=== PATIENT | female | born 1955 | race Caucasian/White ===

== ENCOUNTER 2018-11-02 06:33 | Observation (INO) | payer OTHER ==
[2018-11-01 10:05] LABS: BASOPHILS % 0.3 % (0.0-1.0); EOSINOPHILS # (AUTO) 0.2 (0.0-0.4); EOSINOPHILS % 2.6 % (0.0-6.0); HEMATOCRIT 39.1 % (34.2-44.1); LYMPHOCYTES % 52.8 % (18.0-39.1); MEAN CORPUSCULAR HEMOGLOBIN 29.5 pg (28-32); MEAN CORPUSCULAR HGB CONC 33.2 g/dL (31-35); MEAN CORPUSCULAR VOLUME 88.7 fL (81-99); MONOCYTES # (AUTO) 0.5 (0.2-0.8); MONOCYTES % 9.4 % (4.4-11.3); NEUTROPHILS % 34.2 % (38.7-80.0); PLATELET COUNT 374 x10e3/uL (140-360); RED BLOOD COUNT 4.41 x10e6/uL (3.6-5.1)
--- NOTE | 2018-11-01 10:16 | Diagnostic Imaging Report ---
EXAMINATION: PA and lateral views of the chest. COMPARISON: None CLINICAL HISTORY: Preoperative study for spinal procedure. DISCUSSION: Lines/tubes: None. Lungs: The lungs are well inflated and clear. There is no evidence of pneumonia or pulmonary edema. Pleura: There is no pleural effusion or pneumothorax. Heart and mediastinum: The cardiomediastinal silhouette is normal. Bones and soft tissues: No acute bony abnormalities. Degenerative changes in the thoracic spine IMPRESSION: No acute cardiopulmonary abnormalities. Signed by: Dr. Leobardo Adame M.D. on 11/01/2018 10:13 AM
[2018-11-01 10:31] LABS: INR 0.86; PROTHROMBIN TIME 12.2 seconds (11.9-14.5)
[2018-11-01 10:32] LABS: PARTIAL THROMBOPLASTIN TIME 33.3 seconds (23.8-35.5)
[2018-11-01 10:34] LABS: ANION GAP 12.9 mmol/L (8-16); BLOOD UREA NITROGEN 15 mg/dL (7-26); BUN/CREATININE RATIO 22 (6-25); CALCIUM 10.1 mg/dL (8.4-10.2); CARBON DIOXIDE 27 mmol/L (22-29); CHLORIDE 100 mmol/L (98-107); CREATININE, SERUM 0.69 mg/dL (0.57-1.11); EST GLOMERULAR FILTRATION RATE > 60 ML/MIN (60-); GLUCOSE 92 mg/dL (74-118); POTASSIUM 3.9 mmol/L (3.5-5.1); SODIUM 136 mmol/L (136-145)
[~2018-11-02] VITALS: Ht 172.7 cm; Wt 77.6 kg
[~2018-11-02 06:33] MED LIST: ASPIR 8181 MG PO; BUPROPION HCL75 MG PO; BYSTOLIC10 MG PO; LOSARTAN POTASS25 MG PO; MONTELUKAST SOD10 MG PO; VALIUM5 MG PO
--- OUTSIDE RECORDS SUMMARY | 2018-11-02 06:36 | XMS REPORT ---
Author [facility] Address Unknown Phone Unavailable Care Team Providers Care Coding Clerk Name Role Phone SIDNEY CAMPUZANO Unavailable Unavailable Problems This patient has no known problems. Allergies, Adverse Reactions, Alerts This patient has no known allergies or adverse reactions. Medications This patient has no known medications. Results Test Description Test Time Test Comments Text Results Atomic Results Result Comments CHEST 2 VIEWS 2018-11-01 10:12:00 [place] [id number] Patient Name: LOR BEASLEY MR #: [id number] : 1955 Age/Sex: 63/F Req #: [id number] [facility] Physician: Ordered by: SIDNEY CAMPUZANO MD Report #: [id number] Location: OR Room/Bed: Procedure: [id number] DX/CHEST 2 VIEWS Exam Date: 11/01/18 Exam Time: 0955 REPORT STATUS: Signed EXAMINATION: PA and lateral views of the chest. HAILEY RISON: None CLINICAL HISTORY: Preoperative study for spinal procedure. DISCUSSION: Lines/tubes: None. Lungs: The lungs are well inflated and clear. There is no evidence of pneumonia or pulmonary edema. Pleura: There is no pleural effusion or pneumothorax. Heart and mediastinum: The cardiomediastinal silhouette is normal. Bones and soft tissues: No acute bony abnormalities. Degenerative changes in the thoracic spine IMPRESSION: No acute cardiopulmonary abnormalities. Signed by: Dr. Karen Veronica M.D. on 11/01/2018 10:13 AM Dictated By: KAREN VERONICA MD [id number] Transcribed By: BROOKLYNN on 11/01/18 1013 COPY TO: SIDNEY CAMPUZANO MD
--- OUTSIDE RECORDS SUMMARY | 2018-11-02 06:36 | XMS REPORT | Clinical Summary ---
Author Author [facility] Address Unknown Phone Unavailable Care Team Providers Care Director Of Medical Education Name Role Phone Janette Richter MD PCP Allergies Comments Active Allergy Reactions Severity Noted Date Prochlorperazine 01/31/2017 Medications End Date Status Medication Sig Dispensed Refills Start Date Active traMADol (ULTRAM) 50 mg 0 tablet 8 Active BYSTOLIC 10 mg tablet 0 8 Active montelukast (SINGULAIR) 0 10 mg tablet 8 Active losartan (COZAAR) 50 MG 0 tablet 8 Active atorvastatin (LIPITOR) 10 0 MG tablet 8 Active aspirin 81 mg chewable Chew 81 mg. 0 tablet Active ZIPSOR 25 mg capsule 0 8 Active buPROPion (WELLBUTRIN) 75 Take 1 tablet 90 tablet 0 MG tabletIndications: (75 mg total) 9 Anxiety by mouth daily. 05/16/2018 Discontinued buPROPion (WELLBUTRIN) 75 0 MG tablet 8 06/12/2018 Discontinued ALPRAZolam (XANAX) 0.5 MG 0 tablet 8 07/12/2018 ALPRAZolam (XANAX) 0.5 MG Take 1 tablet 60 tablet 0 tablet (0.5 mg 9 total) by mouth 2 (two) times a day for 30 days. Active Problems Problem Noted Date Essential hypertension 05/16/2018 Anxiety 05/16/2018 Mixed hyperlipidemia 05/16/2018 Primary osteoarthritis of right knee 05/16/2018 URBANO (obstructive sleep apnea) 05/16/2018 Encounters Care Team Description Date Type Specialty Janette Richter MD 06/13/2018 Orders Only Internal Medicine Janette Richter MD 06/12/2018 Orders Only Internal Medicine Janette Richter MD 06/12/2018 Telephone Family Medicine Amrita Razo 06/09/2018 Telephone Family Medicine Janette Richter MD Essential hypertension (Primary Dx); Anxiety; Mixed hyperlipidemia; Primary osteoarthritis of right knee; URBAON (obstructive sleep apnea) 05/16/2018 Office Visit Internal Medicine after 11/01/2017 Social History Date Tobacco Use Types Packs/Day Years Used Never Smoker Smokeless Tobacco: Never Used Alcohol Use Drinks/Week oz/Week Comments No Alcohol Habits Answer Date Recorded How often do you have a drink containing alcohol? Never 05/16/2018 How many drinks containing alcohol do you have on Not asked a typical day when you are drinking? How often do you have six or more drinks on one Not asked occasion? Sex Assigned at Date Recorded Not on file Industry Job Start Date Occupation Not on file Not on file Not on file Travel End Travel History Travel Start No recent travel history available. Last Filed Vital Signs Time Taken Vital Sign Reading 05/16/2018 10:50 AM [employer] BU[employer] Blood Pressure 161/84 05/16/2018 10:50 AM [employer] BU[employer] Pulse 67 - Temperature - - Respiratory Rate - - Oxygen Saturation - - Inhaled Oxygen - Concentration 05/16/2018 10:50 AM [employer] BU[employer] Weight 83 kg (183 lb) 05/16/2018 10:50 AM [employer]YSTER BU[employer]ER Height 174 cm (5' 8.5") 05/16/2018 10:50 AM OYSTER BUYER Body Mass Index 27.42 Plan of Treatment Health Maintenance Due Date Last Done Comments COLONOSCOPY SCREENING 2006 SHINGLES VACCINES (#1) 2006 BREAST CANCER SCREENING 09/06/2018 09/06/2016 INFLUENZA VACCINE 05/16/2019 Postponed from 12/07/2018 (Patient Refused) Results Not on fileafter 11/01/2017 Insurance Type Payer Benefit Subscriber ID Effective Phone Address Plan / Dates Group HMO/PPO [facility] xxxxxxxxx 2018-P THCARE resent CHOICE/CHO ICE + Advance Directives Patient has advance care planning documents on file. For more information, pura carlson contact: Wilber Romero [address] [facility] [place] [address]
[2018-11-02] MEDS ORDERED: BUPIVACAINE 0.5%/EPI 30 ML SDV INJ ONE (06:41)
[2018-11-02] MEDS ORDERED: THROMBIN FOR SOLN 5,000 UNIT VIAL ONE (06:41)
[2018-11-02] MEDS ORDERED: BACITRACIN 50,000 UNIT VIAL ONE (06:41)
[2018-11-02] MEDS ORDERED: ACETAMINOPHEN 1000 MG/100 ML 100 ML IV ONE (07:28)
[2018-11-02] MEDS ORDERED: LIDOCAINE HCL (LTA) 4 ML SOLN ONE (07:29)
[2018-11-02] MEDS ORDERED: CEFAZOLIN SOD 1 GM/NS 50ML 100 ML IV ONE (09:32)
[2018-11-02] MEDS ORDERED: GELATIN SPONGE 12-7MM ONE (10:40)
[2018-11-02] MEDS ORDERED: MAGNESIUM/ALUMINUM/SIMETHICONE 30 ML UDC PO PRN (12:15)
[2018-11-02] MEDS ORDERED: CARISOPRODOL 350 MG TAB PO PRN (12:15)
[2018-11-02] MEDS ORDERED: ACETAMINOPHEN 325 MG TAB PO PRN (12:15)
[2018-11-02] MEDS ORDERED: CEPACOL SORE THROAT LOZENGES PO PRN (12:15)
[2018-11-02] MEDS ORDERED: ZOLPIDEM TARTRATE 5 MG TAB PO PRN (12:15)
[2018-11-02] MEDS ORDERED: OXYCODONE/ACETAMINOPHEN 5-325 1 EACH TABLET PO PRN (12:15)
[2018-11-02] MEDS ORDERED: PROMETHAZINE HCL (IM) 25 MG/ML VIAL IM PRN (12:15)
[2018-11-02] MEDS ORDERED: MORPHINE SULFATE 5 MG/ML VIAL IM PRN (12:15)
[2018-11-02] MEDS ORDERED: DIAZEPAM 5 MG TAB PO PRN (12:15)
--- OUTSIDE RECORDS SUMMARY | 2018-11-02 12:27 | XMS REPORT | Clinical Summary ---
Author Author [facility] Address Unknown Phone Unavailable Care Team Providers Care Drier Name Role Phone Janette Richter MD PCP [...] Mixed hyperlipidemia; Primary osteoarthritis of right knee; URBANO (obstructive sleep apnea) 05/16/2018 Office Visit Internal [...] Taken Vital Sign Reading 05/16/2018 10:50 AM TUGBOAT OPERATOR Blood Pressure 161/84 05/16/2018 10:50 AM TUGBOAT OPERATOR Pulse 67 - Temperature - - Respiratory Rate - - Oxygen Saturation - - Inhaled Oxygen - Concentration 05/16/2018 10:50 AM TUGBOAT OPERATOR Weight 83 kg (183 lb) 05/16/2018 10:50 AM TUGBOAT OPERATOR Height 174 cm (5' 8.5") 05/16/2018 10:50 AM TUGBOAT OPERATOR Body Mass Index 27.42 Plan of Treatment Health Maintenance Due Date Last Done Comments COLONOSCOPY SCREENING 2006 SHINGLES VACCINES (#1) 2006 BREAST CANCER SCREENING 09/06/2018 09/06/2016 INFLUENZA VACCINE 05/16/2019 Postponed from 12/07/2018 (Patient Refused) Results Not on fileafter 11/01/2017 Insurance Type Payer Benefit Subscriber ID Effective Phone Address Plan / Dates Group HMO/PPO [facility] xxxxxxxxx 2018-P THCARE resent CHOICE/CHO ICE + Advance Directives Patient has advance care planning documents on file. For more information, pura carlson contact: Wilber Romero [address] [place] [address]
--- NOTE | 2018-11-02 13:35 | NUR ---
Recvd patient from PACU, AAOx3, NOT IN ANY DISTRESS. ON HARD NECK COLLAR, INCISION SITE ANTERIOR NECK DRY AND INTACT, ON HEMOVAC , ASSISTED HER TO BED, AT BED SIDE, CALL LIGHT IN REACH, BED LOCKED, ALARM ON
[2018-11-02] MEDS ORDERED: MORPHINE SULFATE INJ 4 MG/ML INJ 1ML IM PRN (14:00)
[2018-11-02] MEDS ORDERED: PROPOFOL IV EMULSION 10 MG/ML 20 ML VIAL ONE (14:17)
[2018-11-02] MEDS ORDERED: ONDANSETRON HCL INJ 2MG/ML 2ML 2 MG/ML VIAL ONE (14:17)
[2018-11-02] MEDS ORDERED: NEOSTIGMINE 5 MG/5ML SYR ONE (14:17)
[2018-11-02] MEDS ORDERED: LIDOCAINE HCL 2% LOCAL INJ 5 ML SDV VIAL INJ ONE (14:17)
[2018-11-02] MEDS ORDERED: LIDOCAINE HCL 2% JELLY 5 ML TUBE ONE (14:17)
[2018-11-02] MEDS ORDERED: GLYCOPYRROLATE INJ 1MG/ 5 ML SYR ONE (14:17)
[2018-11-02] MEDS ORDERED: ROCURONIUM BROMIDE 10 MG/ML 5ML VIAL ONE (14:17)
[2018-11-02] MEDS ORDERED: EPHEDRINE SULFATE INJ 50 MG/10 ML SYR ONE (14:17)
[2018-11-02] MEDS ORDERED: SEVOFLURANE INHAL SOLN 250 ML PEN BTL ONE (14:17)
[2018-11-02] MEDS ORDERED: DEXAMETHASONE SOD PHOS INJ 4 MG/ML VIAL ONE (14:17)
[2018-11-02] MEDS: CEFAZOLIN SOD 1 GM/NS 50ML 50 ML IV SCH ×2 (14:30→21:42)
[2018-11-02] MEDS: HYDROMORPHONE 2MG/ML 2 MG/ML ML IV PRN ×2 (14:42→21:42)
[2018-11-02] MEDS: ONDANSETRON HCL INJ 2MG/ML 2ML 2 MG/ML VIAL IV PRN ×2 (14:43→21:42)
[2018-11-02 14:50] VITALS: BP 146/83
[2018-11-02 15:18] VITALS: BP 151/69
--- NOTE | 2018-11-02 18:19 | Operative Report ---
DATE OF PROCEDURE: 11/02/2018 SURGEON: Jose Carlos Gorman MD PREOPERATIVE DIAGNOSIS: C6-7 and C7-T1 spondylosis and disk herniation with left-sided radiculopathy. POSTOPERATIVE DIAGNOSIS: C6-7 and C7-T1 spondylosis and disk herniation with left-sided radiculopathy. PROCEDURES: 1. C6-7 anterior cervical diskectomy and microsurgical osteophyte resection and allograft fusion, 22126. 2. C7-T1 anterior cervical diskectomy and microsurgical osteophyte resection and allograft fusion, 16222. 3. Preparation of tricortical iliac crest allograft, 05999. 4. C6-C7-T1 anterior cervical plating with Synthes CSLP plate, 41336. ANESTHESIA: General. INDICATIONS: The patient is a 63-year-old woman, who presents with severe radiculopathy in the left arm and hand with significant weakness of the left hand. She is found to have an acute disk herniation on the left side at C7-T1 and a chronic disk osteophyte complex at C6-7 eccentric to the left producing severe left C7 foraminal stenosis. She was taken to the operating room for two-level anterior cervical decompression and fusion. PROCEDURE IN DETAIL: After induction of general anesthesia, the patient was placed on the operating table in supine position. The right side of neck was prepped and draped in sterile fashion. The fluoroscopic C-arm was positioned in cross-table lateral orientation. A transverse incision was created on the right side of neck superimposed on the C7 vertebral body as determined by fluoroscopy. The platysma was divided in line with the incision and a subplatysmal dissection was carried out and avascular plane of dissection was developed medial to the sternocleidomastoid muscle and was followed medial to the carotid sheath inferior to the omohyoid muscle to the anterior border of the cervical spine. The deep cervical fascia was opened. The esophagus was retracted to the left. The attachments of longus colli muscles to the anterolateral aspects of vertebral bodies of C6, C7 and T1 were divided. The anterior longitudinal ligament was resected. Rawson posts were inserted into C6 and T1 and the Rawson distractor was used to distract both disk spaces simultaneously. Of note, the recurrent laryngeal nerve was not exposed at any point during this operation. The anterior annuli of both disks were incised with a #11 blade. The contents of both disks were then thoroughly evacuated with angled curettes and pituitary rongeurs under the operating microscope. The posterior osteophytes were then drilled with a 2 mm cutting bur on a high-speed drill until they were completely removed at both levels. The medial aspects of the uncinate processes were resected bilaterally at both levels with particular attention given to the left side and the posterior annulus of the disk, herniated disk material, and posterior longitudinal ligament were resected layer by layer until the dura was fully exposed and decompressed. At C7-T1, herniated disk material extended into the left C8 neural foramen. This was mobilized with a micro ball probe and removed. Excellent decompression of C7 and C8 nerve roots was achieved bilaterally. The wound was then irrigated with bacitracin solution. Hemostasis was secured. A small piece of Gelfoam was placed over the dura for hemostasis. A piece of tricortical iliac crest allograft was selected and cut into two pieces fitting the size and shape of the disk spaces. This was then inserted into the disk spaces under distraction and fluoroscopic guidance. The distraction was released and distraction posts were removed. A Synthes CSLP variable type anterior cervical plate measuring 37 mm was selected and was affixed to the vertebral bodies of C6, C7, and T1 with two pairs of 14 x 4.35 mm screws and one pair of 16 x 4.35 mm screws, the latter being placed in T1. All screws were locked with the appropriate locking screws and excellent construct was obtained. The wound was copiously irrigated with bacitracin solution. Meticulous hemostasis was secured. Retractor was removed. The platysma was closed with 3-0 Vicryl sutures after a Hemovac drain had been placed over the plate and brought out through a separate stab incision. The subcutaneous layer was closed with 2-0 Vicryl sutures. The skin was closed with 3-0 Monocryl sutures in subcuticular fashion. Steri-Strips and dressing were applied. The patient was awakened, extubated, and taken to postanesthesia care in stable condition. No intraoperative complications were encountered. ESTIMATED BLOOD LOSS: 30 mL. Jose Carlos Gorman MD PP/AAYUSH /[id number]
[2018-11-02] MEDS ORDERED: MIDAZOLAM HCL 2 MG/2 ML VIAL ONE (18:24)
[2018-11-02] MEDS ORDERED: FENTANYL CITRATE/PF 100MCG/2 ML INJ ONE (18:24)
--- NOTE | 2018-11-02 19:00 | NUR ---
Received bedside report from day shift RN. The patient is sitting up on the chair and not in distress except for pain in neck area. HOB at 45 degrees, HemoVac next to patient and will monitor for drainage output. Call light within reach, side rails up x2, bed set low and wheels lock. Monitor patient for pain.
[2018-11-02 19:30] VITALS: BP 103/81
[2018-11-02 20:00] VITALS: BP 103/81
[2018-11-02] MEDS ORDERED: MONTELUKAST SODIUM 10 MG TAB PO SCH (21:00)
[2018-11-02] MEDS: LACTATED RINGER'S 1,000 ML IV SCH (21:42)
[2018-11-03] VITALS: BP 115/72
[2018-11-03 04:00] VITALS: BP 140/70
[2018-11-03] MEDS: LACTATED RINGER'S 1,000 ML IV SCH (05:09)
[2018-11-03] MEDS: CEFAZOLIN SOD 1 GM/NS 50ML 50 ML IV SCH (05:09)
--- NOTE | 2018-11-03 07:13 | Diagnostic Imaging Report ---
Exam: Cervical spine 2 views History: Status post surgery Comparison: None. Findings: The cervical spine is visualized from the skull base to the bottom of T1 on the lateral radiograph. Status post anterior fusion of C6, C7, and T1 with an intact plate and screw construct. Alignment is within normal limits. Expected prevertebral soft tissue swelling in the postsurgical setting. Surgical drain is noted. Impression: Status post anterior fusion C6-T1 with expected postoperative changes. Signed by: Dr. Leobardo Adame M.D. on 11/03/2018 7:10 AM
[2018-11-03 08:30] VITALS: BP 120/75
[2018-11-03 08:33] VITALS: BP 120/75
[2018-11-03] MEDS ORDERED: NORCO 7.5-3251 EACH PO (08:55)
[2018-11-03] MEDS ORDERED: BUPROPION HCL 75 MG TAB PO SCH (09:00)
[2018-11-03] MEDS ORDERED: LOSARTAN POTASSIUM 25 MG TAB PO SCH (09:00)
[2018-11-03] MEDS ORDERED: NON-FORMULARY MEDICATION (Bupropion Hcl 75 MG) PO SCH (09:00)
[2018-11-03] MEDS ORDERED: NEBIVOLOL 10 MG TAB PO SCH (09:00)
--- NOTE | 2018-11-03 09:20 | NUR ---
patient alert and oriented. discharge instructions given at this time, patient verbalized understanding. IV discontinued at this time, catheter in tact and pressure dressing applied. Hemovac discontinued, catheter in tact and small dressing applied. patient has hard collar back in place, and will be wheeled out to personal auto for to drive home.
== END 2018-11-03 09:34 | disposition home or self-care (01) ==
LOC: OR 06:33 → PACU V 12:09 → IMCU 13:38
PROVIDERS: ADMIT Neurological Surgery; ATTEND Neurological Surgery
DX: M47.893 Other spondylosis, cervicothoracic region (principal); I10 Essential (primary) hypertension; G47.33 Obstructive sleep apnea (adult) (pediatric)
CPT/HCPCS: 20931; 22551; 22552; 22845; 36415; 71046; 72040; 77003; 80048; 85025; 85610; 85730; 86850; 86900; 88304; 93005; C1713 ×5; C1763; G0378 ×2; J0131; J0690 ×2; J1100; J1170; J2001 ×2; J2250; J2405; J2704; J3490; J7121 ×2; L8699; J3010

== ENCOUNTER → 2018-11-30 | Outpatient (CLI) | payer OTHER ==
[~2018-11-30] MED LIST changes: +NORCO 7.5-3251 EACH PO
--- NOTE | 2018-11-30 09:45 | Diagnostic Imaging Report ---
Cervical spine, 4 views. History: Cervical fusion. Discussion: The cervical spine is visualized on the lateral view from C1 through the top of T1. Anterior cervical fusion of C6-T1 is present in anatomic alignment. Plate and screws are intact. Flexion-extension views demonstrate no evidence of subluxation. There is normal lordotic curvature. There is no evidence of fracture, subluxation, or posterior splaying. Mild disc space narrowing is present at C4-C5 and C5-C6. The prevertebral soft tissues are within normal limits. IMPRESSION: Status post C6-T1 anterior fusion in anatomic alignment. Signed by: Twin Marie on 11/30/2018 9:41 AM
== END ==
LOC: RAD 07:57
PROVIDERS: ATTEND Neurological Surgery
DX: M50.20 Other cervical disc displacement, unspecified cervical region (principal); M43.22 Fusion of spine, cervical region
CPT/HCPCS: 72050

== ENCOUNTER 2019-03-06 08:00 | Outpatient (RCR) | payer OTHER | END 2019-03-08 | LOC: OT 08:00 | PROVIDERS: ATTEND Neurological Surgery | DX: M50.120 Mid-cervical disc disorder, unspecified level (principal) ==